=== PATIENT | male | born 1955 | race African-American/Black ===

== ENCOUNTER 2017-12-15 05:44 | Emergency (ER) | payer MEDICAID ==
[~2017-12-15] VITALS: Ht 188 cm; Wt 105.0 kg
[~2017-12-15 05:44] MED LIST: AMIT100T2 PO; ASPI-1159 PO; ATOR20TA65 PO; CYAN10009 PO; GABA-290 PO; INSULIN 70/30 SQ; LISI-604 PO; MAGN400C PO; TAMS0.4C31 PO
[2017-12-15 06:50] LABS: BASOPHILS % 0.8 % (0.0-2.0); EOSINOPHILS % 3.9 % (0.0-5.0); HEMATOCRIT. 37.4 % (42.0-52.0); HEMOGLOBIN. 12.7 g/dL (14.0-18.0); LYMPHOCYTES % 24.9 % (20.0-50.0); MEAN CORPUSCULAR HEMOGLOBIN 28.7 pg (28.0-32.0); MEAN CORPUSCULAR VOLUME 84.4 fL (80.0-94.0); MEAN PLATELET VOLUME 10.2 fl (7.4-10.4); MONOCYTES % 7.5 % (2.0-8.0); NEUTROPHILS % 62.9 % (40.0-76.0); PLATELET 206 x1000/uL (130-400); RED BLOOD CELL COUNT 4.44 mill/uL (4.7-6.1); RED CELL DISTRIBUTION WIDTH 15.7 % (11.6-14.6)
[2017-12-15 06:54] LABS: CHLORIDE 100 mEq/L (98-107)
[2017-12-15 06:58] LABS: ETHANOL BLOOD < 10 mg/dL
[2017-12-15 07:27] LABS: PROTHROMBIN TIME 10.3 sec (9.1-11.1)
[2017-12-15 07:46] VITALS: BP 127/72
== END 2017-12-15 08:05 | disposition left against medical advice (07) ==
LOC: ER 05:44
DX: R07.89 Other chest pain (principal); F41.9 Anxiety disorder, unspecified; E11.9 Type 2 diabetes mellitus without complications; E78.00 Pure hypercholesterolemia, unspecified; I11.9 Hypertensive heart disease without heart failure; D64.9 Anemia, unspecified; I48.91 Unspecified atrial fibrillation; Z79.01 Long term (current) use of anticoagulants; Z79.82 Long term (current) use of aspirin; Z79.4 Long term (current) use of insulin
CPT/HCPCS: 36415; 70450; 71045; 80053; 83880; 84484; 85025; 85610; 93005; 99285; G0482; Z7610

== ENCOUNTER 2018-03-19 04:05 | Emergency (ER) | payer MEDICAID ==
[~2018-03-19] VITALS: Ht 182.9 cm; Wt 106.8 kg
[2018-03-19] MEDS ORDERED: LEVETIRACETAM 500MG PREMIX 100 ML IV ONE (08:15)
[2018-03-19 09:08] LABS: BASOPHILS % 0.5 % (0.0-2.0); EOSINOPHILS % 0.8 % (0.0-5.0); HEMATOCRIT. 41.5 % (42.0-52.0); HEMOGLOBIN. 13.9 g/dL (14.0-18.0); LYMPHOCYTES % 14.2 % (20.0-50.0); MEAN CORPUSCULAR HEMOGLOBIN 28.9 pg (28.0-32.0); MEAN CORPUSCULAR VOLUME 86.1 fL (80.0-94.0); MEAN PLATELET VOLUME 10.5 fl (7.4-10.4); MONOCYTES % 4.7 % (2.0-8.0); NEUTROPHILS % 79.8 % (40.0-76.0); PLATELET 166 x1000/uL (130-400); RED BLOOD CELL COUNT 4.81 mill/uL (4.7-6.1)
[2018-03-19 09:15] LABS: CHLORIDE 105 mEq/L (98-107)
[2018-03-19 12:39] VITALS: BP 133/52
== END 2018-03-19 12:59 | disposition home or self-care (01) ==
LOC: ER 04:05
DX: G40.909 Epilepsy, unspecified, not intractable, without status epilepticus (principal); E11.9 Type 2 diabetes mellitus without complications; E78.00 Pure hypercholesterolemia, unspecified; I25.10 Atherosclerotic heart disease of native coronary artery without angina pectoris; J45.909 Unspecified asthma, uncomplicated; F17.200 Nicotine dependence, unspecified, uncomplicated; Z79.4 Long term (current) use of insulin; Z79.82 Long term (current) use of aspirin
CPT/HCPCS: 36415; 70450; 71045; 80053; 85025; 93005; 96365; 99284; J1953

== ENCOUNTER 2018-03-19 20:19 | Inpatient (IN) | payer MEDICAID ==
[~2018-03-19] VITALS: Ht 180.3 cm; Wt 95.1 kg
[2018-03-19] MEDS ORDERED: DEXTROSE 50% WATER 50ML SYRINGE IV ONE (21:30)
[2018-03-19 22:07] LABS: CHLORIDE 103 mEq/L (98-107)
[2018-03-19 22:09] LABS: BASOPHILS % 0.6 % (0.0-2.0); EOSINOPHILS % 1.1 % (0.0-5.0); HEMATOCRIT. 39.5 % (42.0-52.0); HEMOGLOBIN. 13.3 g/dL (14.0-18.0); LYMPHOCYTES % 10.5 % (20.0-50.0); MEAN CORPUSCULAR HEMOGLOBIN 29.1 pg (28.0-32.0); MEAN CORPUSCULAR VOLUME 86.5 fL (80.0-94.0); NEUTROPHILS % 82.8 % (40.0-76.0); PLATELET 164 x1000/uL (130-400); RED BLOOD CELL COUNT 4.57 mill/uL (4.7-6.1); RED CELL DISTRIBUTION WIDTH 15.2 % (11.6-14.6)
[2018-03-19 22:41] LABS: CLARITY URINE CLEAR (CLEAR); COLOR URINE YELLOW (YELLOW); KETONES URINE NEGATIVE (NEGATIVE); LEUKOCYTE ESTERASE URINE NEGATIVE (NEGATIVE); NITRITE URINE NEGATIVE (NEGATIVE); OCCULT BLOOD URINE NEGATIVE (NEGATIVE); PH URINE 5.5 (4.5-8.0); PROTEIN URINE NEGATIVE (NEGATIVE); SPECIFIC GRAVITY URINE 1.009 (1.005-1.030); UROBILINOGEN URINE 0.2 E.U./dL (0.2-1.0)
[2018-03-20] MEDS ORDERED: AZITHROMYCIN 500 MG in DEXT 5% WATER 250 ML IV SCH ×2
[2018-03-20] MEDS ORDERED: CEFTRIAXONE 1 G PREMIX 50 ML IV ONE
[2018-03-20 10:50] VITALS: BP 147/78
[2018-03-20 12:30] VITALS: BP 146/69
[2018-03-20] MEDS ORDERED: LEVETIRACETAM 500MG TABLET PO SCH (13:00)
[2018-03-20] MEDS ORDERED: DEXTROSE 50% WATER 50ML SYRINGE IV PRN (13:00)
[2018-03-20 15:41] VITALS: BP 145/79
[2018-03-20] MEDS ORDERED: BLOOD SUGAR DIAGNOSTIC STRIP TEST SCH (17:10)
[2018-03-20] MEDS ORDERED: INSULIN LISPRO 100 UNITS/ML SUBCUT SCH (17:40)
== END 2018-03-20 16:21 | disposition home or self-care (01) | DRG 469 ==
LOC: ER 20:19 → ENRESERV 03-20 09:35 → 8WST 03-20 10:11
PROVIDERS: ADMIT Internal Medicine; ATTEND Internal Medicine
DX: N17.9 Acute kidney failure, unspecified (principal); E11.649 Type 2 diabetes mellitus with hypoglycemia without coma; E44.1 Mild protein-calorie malnutrition; D64.9 Anemia, unspecified; E78.00 Pure hypercholesterolemia, unspecified; E78.5 Hyperlipidemia, unspecified; I10 Essential (primary) hypertension; G40.909 Epilepsy, unspecified, not intractable, without status epilepticus; J45.909 Unspecified asthma, uncomplicated; Z79.4 Long term (current) use of insulin; Z79.82 Long term (current) use of aspirin; Z79.899 Other long term (current) drug therapy; Z68.29 Body mass index [BMI] 29.0-29.9, adult
CPT/HCPCS: 36415; 71045; 82962; 83880; 84484; 93005; 96365; 99285; J0456; J0696; J7060

== ENCOUNTER 2018-03-21 11:08 | Emergency (ER) | payer MEDICAID ==
[~2018-03-21] VITALS: Ht 177.8 cm; Wt 90.0 kg
[2018-03-21 12:17] LABS: BASOPHILS % 0.8 % (0.0-2.0); EOSINOPHILS % 1.8 % (0.0-5.0); HEMATOCRIT. 39.9 % (42.0-52.0); HEMOGLOBIN. 13.3 g/dL (14.0-18.0); LYMPHOCYTES % 17.8 % (20.0-50.0); MEAN CORPUSCULAR HEMOGLOBIN 28.9 pg (28.0-32.0); MEAN CORPUSCULAR VOLUME 86.2 fL (80.0-94.0); MEAN PLATELET VOLUME 10.4 fl (7.4-10.4); MONOCYTES % 5.9 % (2.0-8.0); NEUTROPHILS % 73.7 % (40.0-76.0); PLATELET 148 x1000/uL (130-400); RED BLOOD CELL COUNT 4.62 mill/uL (4.7-6.1); RED CELL DISTRIBUTION WIDTH 15.2 % (11.6-14.6)
[2018-03-21 12:21] LABS: CHLORIDE 102 mEq/L (98-107)
[2018-03-21 13:19] VITALS: BP 168/83
== END 2018-03-21 13:20 | disposition home or self-care (01) ==
LOC: ER 11:08
DX: E11.649 Type 2 diabetes mellitus with hypoglycemia without coma (principal); E78.00 Pure hypercholesterolemia, unspecified; J45.909 Unspecified asthma, uncomplicated; I11.9 Hypertensive heart disease without heart failure; G40.909 Epilepsy, unspecified, not intractable, without status epilepticus; Z79.82 Long term (current) use of aspirin; Z79.4 Long term (current) use of insulin
CPT/HCPCS: 36415; 71045; 82962; 93005; 99284

== ENCOUNTER 2018-08-19 05:45 | Emergency (ER) | payer MEDICAID ==
[~2018-08-19] VITALS: Ht 188 cm; Wt 100.0 kg
[2018-08-19] MEDS ORDERED: SODIUM CHLORIDE 0.9% 1,000 ML IV ONE (06:57)
[2018-08-19] MEDS ORDERED: ONDANSETRON HCL 4MG/2ML INJ IV STA (06:57)
[2018-08-19] MEDS ORDERED: MORPHINE SULFATE 4 MG/ML CPJ (NOT FOR IM USE) IV STA (06:57)
[2018-08-19] MEDS ORDERED: LEVETIRACETAM 500MG PREMIX 100 ML IV ONE (07:00)
[2018-08-19 07:19] LABS: BASOPHILS % 0.7 % (0.0-2.0); EOSINOPHILS % 1.2 % (0.0-5.0); HEMOGLOBIN. 8.8 g/dL (14.0-18.0); LYMPHOCYTES % 8.1 % (20.0-50.0); MEAN CORPUSCULAR HEMOGLOBIN 29.4 pg (28.0-32.0); MEAN CORPUSCULAR VOLUME 87.1 fL (80.0-94.0); MEAN PLATELET VOLUME 9.9 fl (7.4-10.4); MONOCYTES % 10.5 % (2.0-8.0); NEUTROPHILS % 79.5 % (40.0-76.0); PLATELET 215 x1000/uL (130-400); RED BLOOD CELL COUNT 2.98 mill/uL (4.7-6.1)
[2018-08-19 07:25] LABS: CHLORIDE 101 mEq/L (98-107)
[2018-08-19 07:28] LABS: PROTHROMBIN TIME 10.4 sec (9.6-11.0)
[2018-08-19 07:42] LABS: CARBAMAZEPINE < 0.5 ug/mL (4-12); PHENOBARBITAL < 2.1 ug/mL (15.0-40.0)
[2018-08-19] MEDS ORDERED: VANCOMYCIN 1 G PREMIX 200 ML IV ONE (09:30)
[2018-08-19] MEDS ORDERED: SODIUM CHLORIDE 0.9% 1000ML BAG (SEPSIS BOLUS) IV ONE (09:30)
[2018-08-19] MEDS ORDERED: CEFTRIAXONE 1 G PREMIX 50 ML IV ONE (09:30)
[2018-08-19 11:01] LABS: CLARITY URINE CLEAR (CLEAR); COLOR URINE YELLOW (YELLOW); KETONES URINE NEGATIVE (NEGATIVE); LEUKOCYTE ESTERASE URINE NEGATIVE (NEGATIVE); NITRITE URINE NEGATIVE (NEGATIVE); OCCULT BLOOD URINE NEGATIVE (NEGATIVE); PH URINE 6.5 (4.5-8.0); PROTEIN URINE 1+ (NEGATIVE); SPECIFIC GRAVITY URINE 1.012 (1.005-1.030)
[2018-08-19 18:27] VITALS: BP 144/68
== END 2018-08-19 19:27 | disposition short-term general hospital (02) ==
LOC: ER 05:45 → CANBEDREQ 10:50 → ER 19:27
DX: R55 Syncope and collapse (principal); E11.9 Type 2 diabetes mellitus without complications; I10 Essential (primary) hypertension; T81.40XA Infection following a procedure, unspecified, initial encounter; X58.XXXA Exposure to other specified factors, initial encounter; Z98.890 Other specified postprocedural states
CPT/HCPCS: 29505; 36415; 70450; 70486; 71045; 73502; 73560; 73590; 73600; 80053; 80156; 80165; 80184; 80185; 81003; 83605; 83880; 84484; 85025; 85610; 85730; 86850; 86900; 86901; 87040; 87086; 93005; 96365; 96367; 96375; 99285; J0696; J1953; J2270; J2405; J3370; J7030; Z7610

== ENCOUNTER 2018-08-24 01:30 | Inpatient (IN) | payer MEDICAID ==
[~2018-08-24] VITALS: Ht 180.3 cm; Wt 91.6 kg
[2018-08-24 03:38] LABS: BASOPHILS % 0.9 % (0.0-2.0); EOSINOPHILS % 2.2 % (0.0-5.0); HEMATOCRIT. 28.6 % (42.0-52.0); HEMOGLOBIN. 9.4 g/dL (14.0-18.0); LYMPHOCYTES % 11.6 % (20.0-50.0); MEAN CORPUSCULAR HEMOGLOBIN 28.9 pg (28.0-32.0); MEAN CORPUSCULAR VOLUME 87.7 fL (80.0-94.0); MEAN PLATELET VOLUME 10.2 fl (7.4-10.4); MONOCYTES % 6.7 % (2.0-8.0); NEUTROPHILS % 78.6 % (40.0-76.0); PLATELET 410 x1000/uL (130-400); RED BLOOD CELL COUNT 3.26 mill/uL (4.7-6.1); RED CELL DISTRIBUTION WIDTH 15.7 % (11.6-14.6)
[2018-08-24 03:44] LABS: CHLORIDE 110 mEq/L (98-107)
[2018-08-24] MEDS ORDERED: DEXTROSE 50% WATER 50ML SYRINGE IV ONE (04:15)
[2018-08-24] MEDS ORDERED: DEXTROSE 50% WATER 50ML SYRINGE IV PRN ×2 (04:15→12:00)
[2018-08-24] MEDS ORDERED: ASPIRIN 325MG EC TABLET PO SCH (04:15)
[2018-08-24 05:26] LABS: CLARITY URINE CLEAR (CLEAR); COLOR URINE YELLOW (YELLOW); KETONES URINE NEGATIVE (NEGATIVE); LEUKOCYTE ESTERASE URINE NEGATIVE (NEGATIVE); NITRITE URINE NEGATIVE (NEGATIVE); OCCULT BLOOD URINE NEGATIVE (NEGATIVE); PH URINE 5.5 (4.5-8.0); PROTEIN URINE TRACE (NEGATIVE); SPECIFIC GRAVITY URINE 1.018 (1.005-1.030)
[2018-08-24 09:30] VITALS: BP 130/63
[2018-08-24 10:00] VITALS: BP 130/63
[2018-08-24] MEDS ORDERED: ACETAMINOPHEN 325MG TABLET PO PRN (10:15)
[2018-08-24] MEDS ORDERED: ONDANSETRON HCL 4MG/2ML INJ IV PRN (10:15)
[2018-08-24] MEDS ORDERED: AMLO10TA80 PO (11:06)
[2018-08-24] MEDS ORDERED: CARV12.545 PO (11:09)
[2018-08-24] MEDS ORDERED: LOSA100T14 PO (11:09)
[2018-08-24] MEDS ORDERED: NIFE60TA94 PO (11:09)
[2018-08-24] MEDS ORDERED: HYDR-4134 MT (11:09)
[2018-08-24] MEDS ORDERED: SEVE800T8 PO (11:09)
[2018-08-24 12:00] VITALS: BP 134/61
[2018-08-24] MEDS ORDERED: LACTULOSE 20G/30ML UDC PO PRN (12:00)
[2018-08-24] MEDS: INSULIN LISPRO 100 UNITS/ML SUBCUT SCH ×3 (12:24→20:34)
[2018-08-24] MEDS: BLOOD SUGAR DIAGNOSTIC STRIP TEST SCH ×3 (12:24→20:34)
[2018-08-24] MEDS ORDERED: ACETAMINOPHEN WITH CODEINE 300/30MG TABLET PO PRN (16:15)
[2018-08-24] MEDS: DOCUSATE SODIUM 100MG CAPSULE PO SCH (17:39)
[2018-08-24 20:00] VITALS: BP 138/68
[2018-08-24] MEDS: HYDROCODONE/ACETAMINOPHEN 5/325MG TABLET PO PRN (20:32)
[2018-08-25] VITALS: BP 143/71
[2018-08-25] MEDS: HYDROCODONE/ACETAMINOPHEN 5/325MG TABLET PO PRN ×2 (01:58→08:38)
[2018-08-25 03:41] VITALS: BP 149/66
[2018-08-25 06:16] LABS: BASOPHILS % 0.9 % (0.0-2.0); EOSINOPHILS % 2.4 % (0.0-5.0); HEMATOCRIT. 27.4 % (42.0-52.0); HEMOGLOBIN. 9.1 g/dL (14.0-18.0); LYMPHOCYTES % 18.8 % (20.0-50.0); MEAN CORPUSCULAR HEMOGLOBIN 28.9 pg (28.0-32.0); MONOCYTES % 8.4 % (2.0-8.0); NEUTROPHILS % 69.5 % (40.0-76.0); PLATELET 372 x1000/uL (130-400); RED BLOOD CELL COUNT 3.15 mill/uL (4.7-6.1); RED CELL DISTRIBUTION WIDTH 16.1 % (11.6-14.6)
[2018-08-25 06:19] LABS: CHLORIDE 109 mEq/L (98-107)
[2018-08-25] MEDS: BLOOD SUGAR DIAGNOSTIC STRIP TEST SCH ×3 (07:20→17:14)
[2018-08-25] MEDS: INSULIN LISPRO 100 UNITS/ML SUBCUT SCH ×3 (07:50→17:16)
[2018-08-25 08:00] VITALS: BP 148/73
[2018-08-25] MEDS: DOCUSATE SODIUM 100MG CAPSULE PO SCH ×2 (08:33→17:00)
[2018-08-25] MEDS ORDERED: FERROUS SULFATE 325MG TABLET PO SCH (09:00)
[2018-08-25 12:00] VITALS: BP 155/68
[2018-08-25] MEDS ORDERED: MORPHINE SULFATE 10MG/5ML ORAL SOLN UDC PO PRN (12:00)
[2018-08-25] MEDS ORDERED: MORPHINE SULFATE 4 MG/ML CPJ (NOT FOR IM USE) IV NR (12:15)
[2018-08-25 12:39] VITALS: BP_SYST 140; BP_SYST 155; BP_DIAS 64; BP_DIAS 68
[2018-08-25 16:00] VITALS: BP 143/67
== END 2018-08-25 18:27 | disposition home health service (06) | DRG 48 ==
LOC: ER 01:30 → 6WST 04:22 → ENRESERV 07:58
PROVIDERS: ADMIT Internal Medicine; ATTEND Internal Medicine
DX: G90.8 Other disorders of autonomic nervous system (principal); E43 Unspecified severe protein-calorie malnutrition; E11.649 Type 2 diabetes mellitus with hypoglycemia without coma; I95.9 Hypotension, unspecified; E87.8 Other disorders of electrolyte and fluid balance, not elsewhere classified; E11.36 Type 2 diabetes mellitus with diabetic cataract; D64.9 Anemia, unspecified; E78.5 Hyperlipidemia, unspecified; G40.909 Epilepsy, unspecified, not intractable, without status epilepticus; H91.90 Unspecified hearing loss, unspecified ear; I10 Essential (primary) hypertension; I25.10 Atherosclerotic heart disease of native coronary artery without angina pectoris; K27.9 Peptic ulcer, site unspecified, unspecified as acute or chronic, without hemorrhage or perforation; R26.2 Difficulty in walking, not elsewhere classified; F17.210 Nicotine dependence, cigarettes, uncomplicated; N26.1 Atrophy of kidney (terminal); Z79.899 Other long term (current) drug therapy; Z82.49 Family history of ischemic heart disease and other diseases of the circulatory system; Z82.3 Family history of stroke; Z68.28 Body mass index [BMI] 28.0-28.9, adult
CPT/HCPCS: 36415; 71045; 80048; 82962; 83036; 83880; 84145; 84484; 93005; 93306; 93970; 97162; 97166; 99285; J1815; J2270

== ENCOUNTER 2018-11-08 01:12 | Emergency (ER) | payer MEDICAID ==
[~2018-11-08] VITALS: Ht 182.9 cm; Wt 84.0 kg
[~2018-11-08 01:12] MED LIST changes: -AMIT100T2 PO; +AMLO10TA80 PO; -ASPI-1159 PO; -ATOR20TA65 PO; -CYAN10009 PO; -GABA-290 PO; -INSULIN 70/30 SQ; -LISI-604 PO; -MAGN400C PO; -TAMS0.4C31 PO
[2018-11-08] MEDS ORDERED: SODIUM CHLORIDE 0.9% 1,000 ML IV ONE (02:01)
[2018-11-08 02:25] LABS: BASOPHILS % 0.8 % (0.0-2.0); EOSINOPHILS % 4.1 % (0.0-5.0); LYMPHOCYTES % 24.4 % (20.0-50.0); MEAN CORPUSCULAR HEMOGLOBIN 29.4 pg (28.0-32.0); MEAN CORPUSCULAR VOLUME 85.7 fL (80.0-94.0); MEAN PLATELET VOLUME 11.5 fl (7.4-10.4); MONOCYTES % 5.3 % (2.0-8.0); NEUTROPHILS % 65.4 % (40.0-76.0); PLATELET 129 x1000/uL (130-400); RED BLOOD CELL COUNT 4.43 mill/uL (4.7-6.1); RED CELL DISTRIBUTION WIDTH 14.3 % (11.6-14.6)
[2018-11-08 02:29] LABS: CHLORIDE 104 mEq/L (98-107)
[2018-11-08 02:36] LABS: BETA HYDROXYBUTYRATE 0.1 mMol/L (0.0-0.3)
[2018-11-08 04:21] VITALS: BP 122/68
== END 2018-11-08 04:30 | disposition home or self-care (01) ==
LOC: ER 01:12
DX: E11.65 Type 2 diabetes mellitus with hyperglycemia (principal); J45.909 Unspecified asthma, uncomplicated; E78.00 Pure hypercholesterolemia, unspecified; R56.9 Unspecified convulsions; I10 Essential (primary) hypertension; I25.10 Atherosclerotic heart disease of native coronary artery without angina pectoris
CPT/HCPCS: 36415; 80053; 82010; 82962; 85025; 96360; 99283; J7030; Z7610

== ENCOUNTER 2018-11-17 05:01 | Emergency (ER) | payer MEDICAID ==
[~2018-11-17] VITALS: Ht 180.3 cm; Wt 90.0 kg
[2018-11-17] MEDS ORDERED: GLUCAGON,HUMAN RECOMBINANT 1MG/VIAL IV ONE (05:30)
[2018-11-17] MEDS ORDERED: DEXT 10% WATER 1,000 ML IV ONE (05:45)
[2018-11-17] MEDS ORDERED: DEXTROSE 50% WATER 50ML SYRINGE IV ONE (05:45)
[2018-11-17 06:42] LABS: BASOPHILS % 0.6 % (0.0-2.0); EOSINOPHILS % 3.4 % (0.0-5.0); HEMOGLOBIN. 12.9 g/dL (14.0-18.0); LYMPHOCYTES % 15.3 % (20.0-50.0); MEAN CORPUSCULAR HEMOGLOBIN 29.4 pg (28.0-32.0); MEAN CORPUSCULAR VOLUME 86.7 fL (80.0-94.0); MEAN PLATELET VOLUME 9.9 fl (7.4-10.4); MONOCYTES % 7.1 % (2.0-8.0); NEUTROPHILS % 73.6 % (40.0-76.0); PLATELET 129 x1000/uL (130-400); RED BLOOD CELL COUNT 4.39 mill/uL (4.7-6.1); RED CELL DISTRIBUTION WIDTH 14.6 % (11.6-14.6)
[2018-11-17 06:47] LABS: CHLORIDE 104 mEq/L (98-107)
[2018-11-17 09:59] VITALS: BP 176/73
== END 2018-11-17 10:04 | disposition home or self-care (01) ==
LOC: ER 05:17
DX: E11.649 Type 2 diabetes mellitus with hypoglycemia without coma (principal); E78.00 Pure hypercholesterolemia, unspecified; I10 Essential (primary) hypertension; G40.909 Epilepsy, unspecified, not intractable, without status epilepticus; J45.909 Unspecified asthma, uncomplicated; I25.10 Atherosclerotic heart disease of native coronary artery without angina pectoris; F17.210 Nicotine dependence, cigarettes, uncomplicated; Z79.4 Long term (current) use of insulin; Z98.890 Other specified postprocedural states
CPT/HCPCS: 36415; 80053; 82962; 85025; 93005; 96361; 96374; 96375; 99284; J1610

== ENCOUNTER 2019-02-16 02:22 | Inpatient (IN) | payer MEDICAID ==
[~2019-02-16] VITALS: Ht 172.7 cm; Wt 112.5 kg
[2019-02-16] MEDS ORDERED: SODIUM CHLORIDE 0.9% 1,000 ML IV ONE (03:41)
[2019-02-16] MEDS ORDERED: ONDANSETRON 4MG ODT PO STA (03:41)
[2019-02-16] MEDS ORDERED: KETOROLAC 30MG/ML VIAL IV STA (03:41)
[2019-02-16 04:33] LABS: PROTHROMBIN TIME 10.5 sec (9.6-11.0)
[2019-02-16 04:37] LABS: EOSINOPHILS % 5.6 % (0.0-5.0); HEMATOCRIT. 37.9 % (42.0-52.0); HEMOGLOBIN. 13.2 g/dL (14.0-18.0); LYMPHOCYTES % 23.5 % (20.0-50.0); MEAN CORPUSCULAR HEMOGLOBIN 30.7 pg (28.0-32.0); MEAN CORPUSCULAR VOLUME 88.3 fL (80.0-94.0); MONOCYTES % 8.9 % (2.0-8.0); PLATELET 125 x1000/uL (130-400); RED CELL DISTRIBUTION WIDTH 14.5 % (11.6-14.6)
[2019-02-16 04:38] LABS: CHLORIDE 104 mEq/L (98-107)
[2019-02-16 05:10] LABS: CLARITY URINE CLEAR (CLEAR); COLOR URINE YELLOW (YELLOW); KETONES URINE NEGATIVE (NEGATIVE); LEUKOCYTE ESTERASE URINE NEGATIVE (NEGATIVE); NITRITE URINE NEGATIVE (NEGATIVE); OCCULT BLOOD URINE NEGATIVE (NEGATIVE); PROTEIN URINE 1+ (NEGATIVE); SPECIFIC GRAVITY URINE 1.038 (1.005-1.030); UROBILINOGEN URINE 0.2 E.U./dL (0.2-1.0)
[2019-02-16] MEDS ORDERED: IOHEXOL-300 100 ML BOTTLE ONE (05:57)
[2019-02-16] MEDS ORDERED: FAMOTIDINE 20MG/2ML VIAL IV ONE (07:45)
[2019-02-16] MEDS ORDERED: ONDANSETRON HCL 4MG/2ML INJ IV PRN (09:45)
[2019-02-16] MEDS ORDERED: DEXTROSE 50% WATER 50ML SYRINGE IV PRN (09:45)
[2019-02-16] MEDS ORDERED: NA PHOS,M-B/NA PHOS,DI-BA ENEMA 118ML PR SCH (09:45)
[2019-02-16] MEDS ORDERED: MORPHINE SULFATE 2 MG/ML CPJ (NOT FOR IM USE) IV PRN (09:45)
[2019-02-16] MEDS ORDERED: BISACODYL 10MG SUPP PR SCH (10:34)
[2019-02-16] MEDS: SODIUM CHLORIDE 0.9% 1,000 ML IV SCH (10:41)
[2019-02-16] MEDS: PANTOPRAZOLE SODIUM 40 MG/VIAL IV SCH (10:58)
[2019-02-16 12:00] VITALS: BP 161/90
[2019-02-16] MEDS ORDERED: ENALAPRIL 2.5MG/2ML VIAL 2ML IV SCH (12:00)
[2019-02-16 16:00] VITALS: BP 153/82
[2019-02-16 17:00] VITALS: BP 161/90
[2019-02-16] MEDS: ENALAPRIL 1.25 MG in DEXTROSE 5% WATER 50 ML IV SCH (18:40)
[2019-02-16 20:00] VITALS: BP 153/74
[2019-02-16] MEDS ORDERED: HYDROCODONE/APAP 7.5/325MG 1 TAB TABLET PO PRN (20:00)
[2019-02-16] MEDS: INSULIN LISPRO 100 UNITS/ML SUBCUT SCH (21:00)
[2019-02-16] MEDS: BLOOD SUGAR DIAGNOSTIC STRIP TEST SCH (21:00)
[2019-02-16] MEDS: CARVEDILOL 3.125 MG TABLET PO SCH ×2 (21:08→21:28)
[2019-02-17] VITALS: BP 155/78
[2019-02-17] MEDS: ENALAPRIL 1.25 MG in DEXTROSE 5% WATER 50 ML IV SCH ×4 (00:29→18:00)
[2019-02-17 04:00] VITALS: BP 163/73
[2019-02-17] MEDS: SODIUM CHLORIDE 0.9% 1,000 ML IV SCH (05:58)
[2019-02-17] MEDS: INSULIN LISPRO 100 UNITS/ML SUBCUT SCH ×3 (07:00→17:34)
[2019-02-17] MEDS: BLOOD SUGAR DIAGNOSTIC STRIP TEST SCH ×3 (07:00→17:26)
[2019-02-17 07:54] LABS: BASOPHILS % 0.9 % (0.0-2.0); EOSINOPHILS % 4.6 % (0.0-5.0); HEMATOCRIT. 36.7 % (42.0-52.0); HEMOGLOBIN. 12.4 g/dL (14.0-18.0); LYMPHOCYTES % 25.1 % (20.0-50.0); MEAN CORPUSCULAR HEMOGLOBIN 30.4 pg (28.0-32.0); MEAN CORPUSCULAR VOLUME 89.4 fL (80.0-94.0); MEAN PLATELET VOLUME 10.6 fl (7.4-10.4); MONOCYTES % 6.5 % (2.0-8.0); NEUTROPHILS % 62.9 % (40.0-76.0); PLATELET 119 x1000/uL (130-400); RED CELL DISTRIBUTION WIDTH 14.4 % (11.6-14.6)
[2019-02-17 08:00] VITALS: BP 155/78
[2019-02-17 08:36] LABS: CHLORIDE 108 mEq/L (98-107)
[2019-02-17] MEDS ORDERED: ATORVASTATIN CALCIUM 40MG TABLET PO SCH (09:00)
[2019-02-17] MEDS ORDERED: FAMOTIDINE 20MG TABLET PO SCH (09:00)
[2019-02-17] MEDS ORDERED: LISINOPRIL 10MG TABLET PO SCH (09:00)
[2019-02-17] MEDS ORDERED: ASPIRIN 81MG TABLET PO SCH (09:00)
[2019-02-17] MEDS ORDERED: TAMSULOSIN HCL 0.4MG SR CAPSULE PO SCH (09:00)
[2019-02-17] MEDS ORDERED: PANTOPRAZOLE SODIUM 40 MG/VIAL IV SCH (09:00)
[2019-02-17] MEDS: PANTOPRAZOLE SODIUM 40 MG/VIAL IV SCH (09:49)
[2019-02-17] MEDS: CARVEDILOL 3.125 MG TABLET PO SCH (09:53)
[2019-02-17] MEDS: LEVETIRACETAM 500MG TABLET PO SCH ×2 (09:54→17:33)
[2019-02-17 10:06] LABS: *AMPHETAMINES SCREEN URINE NEGATIVE (NEGATIVE); *BARBITURATES SCREEN URINE NEGATIVE (NEGATIVE); *BENZODIAZEPINES SCREEN URINE NEGATIVE (NEGATIVE); *COCAINE SCREEN URINE NEGATIVE (NEGATIVE)
[2019-02-17 10:07] LABS: CANNABINOID URINE SCREEN NEGATIVE (NEGATIVE); METHADONE URINE SCREEN NEGATIVE (NEGATIVE); OPIATES URINE SCREEN PRESUMTIVE POSITIVE (NEGATIVE); PHENCYCLIDINE URINE SCREEN NEGATIVE (NEGATIVE)
[2019-02-17 12:00] VITALS: BP 140/60
[2019-02-17] MEDS ORDERED: PROPOFOL 200MG/20ML VIAL IV ONE (12:22)
[2019-02-17] MEDS ORDERED: HYDROMORPHONE HCL/PF 2MG/ML CPJ IV PRN (12:45)
[2019-02-17] MEDS ORDERED: ONDANSETRON HCL 4MG/2ML INJ IV PRN (12:45)
[2019-02-17] MEDS ORDERED: LABETALOL 5MG/ML SYR 20 MG/4 ML SYRINGE IV PRN (12:45)
[2019-02-17] MEDS ORDERED: MEPERIDINE HCL/PF 25MG/ML CPJ IV PRN (12:45)
[2019-02-17] MEDS ORDERED: OMEP40CA34 MT (15:00)
[2019-02-17 16:00] VITALS: BP 139/78
[2019-02-17 16:32] VITALS: BP 155/78
== END 2019-02-17 18:27 | disposition home or self-care (01) | DRG 241 ==
LOC: ER 03:43 → 6EST 09:04 → ENRESERV 11:21
PROVIDERS: ADMIT Internal Medicine; ATTEND Internal Medicine
PROC: 0DB78ZX Excision of Stomach, Pylorus, Via Natural or Artificial Opening Endoscopic, Diagnostic (ICD-10-PCS; principal; 2019-02-17)
PROC: 0D758ZZ Dilation of Esophagus, Via Natural or Artificial Opening Endoscopic (ICD-10-PCS; 2019-02-17)
DX: K25.9 Gastric ulcer, unspecified as acute or chronic, without hemorrhage or perforation (principal); D69.6 Thrombocytopenia, unspecified; K22.0 Achalasia of cardia; E66.01 Morbid (severe) obesity due to excess calories; N28.1 Cyst of kidney, acquired; D64.9 Anemia, unspecified; E11.9 Type 2 diabetes mellitus without complications; K20.9 Esophagitis, unspecified; K29.70 Gastritis, unspecified, without bleeding; E78.5 Hyperlipidemia, unspecified; F17.210 Nicotine dependence, cigarettes, uncomplicated; G40.909 Epilepsy, unspecified, not intractable, without status epilepticus; I10 Essential (primary) hypertension; I25.10 Atherosclerotic heart disease of native coronary artery without angina pectoris; K22.8 Other specified diseases of esophagus; K56.41 Fecal impaction; N26.1 Atrophy of kidney (terminal); Z87.11 Personal history of peptic ulcer disease; Z71.6 Tobacco abuse counseling; Z68.37 Body mass index [BMI] 37.0-37.9, adult; Z71.3 Dietary counseling and surveillance; Z79.899 Other long term (current) drug therapy
CPT/HCPCS: 36415; 71045; 74177; 80048; 80305; 81003; 82962; 83880; 84484; 88305; 88313; 93970; 96374; 99285; C9113; J1815; J1885; J2270; J2704; J3490; J7030; J7060; Q0162; Q9967

== ENCOUNTER 2022-08-12 19:33 | Inpatient (IN) | payer MEDICARE, MEDICAID ==
[~2022-08-12] VITALS: Ht 180.3 cm; Wt 98.0 kg
[~2022-08-12 19:33] MED LIST changes: +AMLO5TAB88 PO; +ASPI-1406 PO; +ATOR-2 PO; +BLOO-1657 XX; +CARV3.1242 PO; +INSU100I24 SUBCUT; +LEVE500T19 PO; +LISI20TA31 PO; +METF-416 PO; +OMEP40CA20 MT; +PRIL20 PO; +[UNRECOGNIZED DRUG - CODE]; +[UNRECOGNIZED DRUG - CODE]; +[UNRECOGNIZED DRUG - CODE] TP
[2022-08-12 21:23] LABS: HEMATOCRIT. 38.4 % (42.0-52.0); MEAN CORPUSCULAR HEMOGLOBIN 29.1 pg (28.0-32.0); MEAN CORPUSCULAR VOLUME 86.1 fL (80.0-94.0); MEAN PLATELET VOLUME 10.5 fl (7.4-10.4); PLATELET 123 x1000/uL (130-400); RED BLOOD CELL COUNT 4.46 mill/uL (4.7-6.1); RED CELL DISTRIBUTION WIDTH 14.5 % (11.6-14.6)
[2022-08-12 21:32] LABS: CHLORIDE 106 mEq/L (98-107)
[2022-08-13 00:19] LABS: PLATELET ESTIMATE NORMAL
[2022-08-13 01:39] VITALS: BP 145/70
[2022-08-13 01:44] LABS: CLARITY URINE CLEAR (CLEAR); COLOR URINE YELLOW (YELLOW); KETONES URINE TRACE (NEGATIVE); LEUKOCYTE ESTERASE URINE NEGATIVE (NEGATIVE); NITRITE URINE NEGATIVE (NEGATIVE); OCCULT BLOOD URINE NEGATIVE (NEGATIVE); PROTEIN URINE 1+ (NEGATIVE); SPECIFIC GRAVITY URINE 1.024 (1.005-1.030)
[2022-08-13] MEDS ORDERED: DEXTROSE 50% WATER 50ML SYRINGE IV PRN (02:30)
[2022-08-13 04:00] VITALS: BP 138/68
[2022-08-13 06:45] LABS: HEMATOCRIT. 37.6 % (42.0-52.0); HEMOGLOBIN. 12.8 g/dL (14.0-18.0); MEAN CORPUSCULAR HEMOGLOBIN 29.2 pg (28.0-32.0); MEAN PLATELET VOLUME 11.2 fl (7.4-10.4); PLATELET 121 x1000/uL (130-400); RED BLOOD CELL COUNT 4.37 mill/uL (4.7-6.1); RED CELL DISTRIBUTION WIDTH 14.5 % (11.6-14.6)
[2022-08-13 06:57] LABS: CHLORIDE 106 mEq/L (98-107)
[2022-08-13] MEDS: BLOOD SUGAR DIAGNOSTIC STRIP TEST SCH ×2 (07:40→12:56)
[2022-08-13] MEDS ORDERED: OMEPRAZOLE 20MG CAPSULE EXTENDED RELEASE PO SCH (07:40)
[2022-08-13 08:00] VITALS: BP 121/62
[2022-08-13] MEDS: INSULIN LISPRO 100 UNITS/ML SUBCUT SCH ×2 (08:52→13:09)
[2022-08-13] MEDS ORDERED: TAMSULOSIN HCL 0.4MG SR CAPSULE PO SCH (09:00)
[2022-08-13] MEDS ORDERED: CARVEDILOL 3.125 MG TABLET PO SCH (09:00)
[2022-08-13] MEDS ORDERED: ASPIRIN 81MG EC TABLET PO SCH (09:00)
[2022-08-13] MEDS ORDERED: LEVETIRACETAM 500MG TABLET PO SCH (09:00)
[2022-08-13] MEDS ORDERED: AMLODIPINE 10MG TABLET PO SCH (09:00)
[2022-08-13] MEDS ORDERED: LISINOPRIL 20MG TABLET PO SCH (09:00)
[2022-08-13 12:00] VITALS: BP 120/60
[2022-08-13] MEDS ORDERED: GUAIFENESIN-DM 200MG-20MG/10ML UDC PO PRN (16:00)
[2022-08-13 17:03] VITALS: BP 120/66
[2022-08-13] MEDS ORDERED: ATORVASTATIN CALCIUM 40MG TABLET PO SCH (21:00)
[2022-08-13 21:01] LABS: PLATELET ESTIMATE NORMAL
[2022-08-14 13:08] LABS: *AMPHETAMINES SCREEN URINE NEGATIVE (NEGATIVE); *BARBITURATES SCREEN URINE NEGATIVE (NEGATIVE); *BENZODIAZEPINES SCREEN URINE NEGATIVE (NEGATIVE); *COCAINE SCREEN URINE NEGATIVE (NEGATIVE); CANNABINOID URINE SCREEN NEGATIVE (NEGATIVE); METHADONE URINE SCREEN NEGATIVE (NEGATIVE); OPIATES URINE SCREEN NEGATIVE (NEGATIVE); PHENCYCLIDINE URINE SCREEN NEGATIVE (NEGATIVE)
== END 2022-08-13 18:18 | disposition home or self-care (01) | DRG 420 ==
LOC: ER 19:33 → MICUSO 22:27 → EDBEDREQ 23:05 → 7WST 08-13 01:35
PROVIDERS: ADMIT Internal Medicine; ATTEND Internal Medicine
DX: E11.65 Type 2 diabetes mellitus with hyperglycemia (principal); E78.00 Pure hypercholesterolemia, unspecified; G40.909 Epilepsy, unspecified, not intractable, without status epilepticus; I10 Essential (primary) hypertension; Z79.899 Other long term (current) drug therapy
CPT/HCPCS: 36415; 71045; 80048; 80053; 80305; 81003; 82962; 83036; 83880; 84484; 85025; 99285; J1815

== ENCOUNTER 2023-10-30 12:02 | Emergency (ER) | payer MEDICARE, MEDICAID ==
[~2023-10-30] VITALS: Ht 180.3 cm; Wt 85.0 kg
[2023-10-30 12:05] VITALS: O2SAT 99
[2023-10-30 12:29] LABS: EOSINOPHILS % 6.2 % (0.0-5.0); HEMATOCRIT. 36.6 % (42.0-52.0); HEMOGLOBIN. 12.2 g/dL (14.0-18.0); LYMPHOCYTES % 28.7 % (20.0-50.0); MEAN CORPUSCULAR HGB CONC 33.3 g/dL (31.0-37.0); MONOCYTES % 7.4 % (2.0-8.0); NEUTROPHILS % 56.7 % (40.0-76.0); PLATELET 117 x1000/uL (130-400); RED BLOOD CELL COUNT 4.21 mill/uL (4.7-6.1); RED CELL DISTRIBUTION WIDTH 14.5 % (11.6-14.6); WHITE BLOOD COUNT 5.6 x1000/uL (4.5-11.0)
[2023-10-30 12:33] LABS: CHLORIDE 108 mEq/L (98-107); POTASSIUM 4.5 mEq/L (3.5-5.1); SODIUM 142 mEq/L (136-145)
[2023-10-30 12:34] LABS: CARBON DIOXIDE 31 mEq/L (21-32)
[2023-10-30 12:35] LABS: CALCIUM 8.8 mg/dL (8.7-10.4)
[2023-10-30 12:39] LABS: CREATININE 1.4 mg/dL (0.6-1.3)
[2023-10-30 12:40] LABS: TROPONIN I HIGH SENSITIVITY 12 ng/L (3.0-53); UREA NITROGEN BLOOD 22 mg/dL (9-23)
[2023-10-30 12:41] LABS: ALANINE AMINOTRANSFERASE 26 IU/L (10-49); ASPARTATE AMINOTRANSFERASE 18 IU/L (<34)
[2023-10-30 12:42] LABS: ALBUMIN 3.5 g/dL (3.2-4.8); BILIRUBIN TOTAL 0.4 mg/dL (0.1-1.0); PROTEIN TOTAL 5.6 g/dL (6.0-8.3)
[2023-10-30 12:49] LABS: GLUCOSE 109 mg/dL (70-105)
[2023-10-30] MEDS: ACETAMINOPHEN 325MG TABLET PO ONE (13:24)
[2023-10-30 14:13] VITALS: BP 125/61; PULSE 60; RESP 12; TEMP 98.1
[2023-10-30] MEDS ORDERED: DEXTROSE 50% WATER 50ML SYRINGE IV PRN (14:15)
[2023-10-30] MEDS ORDERED: ONDANSETRON HCL 4MG/2ML INJ IV PRN (14:15)
[2023-10-30] MEDS ORDERED: ACETAMINOPHEN 325MG TABLET PO PRN (14:15)
[2023-10-30] MEDS: SODIUM CHLORIDE 0.9% 1,000 ML IV SCH (14:20)
[2023-10-30 14:32] LABS: TROPONIN I HIGH SENSITIVITY 12 ng/L (3.0-53)
[2023-10-30] MEDS ORDERED: BLOOD SUGAR DIAGNOSTIC STRIP TEST SCH (17:00)
[2023-10-30] MEDS ORDERED: INSULIN LISPRO 100 UNITS/ML SUBCUT SCH (18:20)
== END 2023-10-30 15:26 | disposition left against medical advice (07) ==
LOC: ER 12:02 → CANBEDREQ 14:44 → ER 15:26
DX: R55 Syncope and collapse (principal); G40.909 Epilepsy, unspecified, not intractable, without status epilepticus; E11.9 Type 2 diabetes mellitus without complications; E78.00 Pure hypercholesterolemia, unspecified; I10 Essential (primary) hypertension
CPT/HCPCS: 36415; 71045; 80053; 82962; 84484; 85025; 93005; 96360; 99285

== ENCOUNTER 2024-03-12 10:30 | Emergency (ER) | payer MEDICARE, MEDICAID ==
[~2024-03-12] VITALS: Ht 172.7 cm; Wt 80.0 kg
[2024-03-12 10:32] VITALS: O2SAT 100
[2024-03-12 10:50] VITALS: TEMP 36.72516
[2024-03-12 11:07] LABS: BASOPHILS % 0.8 % (0.0-2.0); EOSINOPHILS % 3.5 % (0.0-5.0); HEMATOCRIT. 37.6 % (42.0-52.0); HEMOGLOBIN. 12.4 g/dL (14.0-18.0); MEAN CORPUSCULAR HEMOGLOBIN 28.6 pg (28.0-32.0); MEAN CORPUSCULAR HGB CONC 33.1 g/dL (31.0-37.0); MEAN CORPUSCULAR VOLUME 86.4 fL (80.0-94.0); MEAN PLATELET VOLUME 10.4 fl (7.4-10.4); MONOCYTES % 6.3 % (2.0-8.0); NEUTROPHILS % 72.4 % (40.0-76.0); PLATELET 126 x1000/uL (130-400); RED BLOOD CELL COUNT 4.35 mill/uL (4.7-6.1); RED CELL DISTRIBUTION WIDTH 13.6 % (11.6-14.6); WHITE BLOOD COUNT 6.8 x1000/uL (4.5-11.0)
[2024-03-12] MEDS: SODIUM CHLORIDE 0.9% 1,000 ML IV ONE (11:13)
[2024-03-12 11:18] LABS: CALCIUM 8.8 mg/dL (8.7-10.4); CHLORIDE 103 mEq/L (98-107); POTASSIUM 4.7 mEq/L (3.5-5.1); SODIUM 136 mEq/L (136-145)
[2024-03-12 11:19] LABS: CARBON DIOXIDE 29 mEq/L (21-32)
[2024-03-12 11:20] LABS: CREATININE 1.6 mg/dL (0.6-1.3)
[2024-03-12 11:21] LABS: PROTHROMBIN TIME 11.4 sec (9.6-11.0); UREA NITROGEN BLOOD 17 mg/dL (9-23)
[2024-03-12 11:22] LABS: ALANINE AMINOTRANSFERASE 23 IU/L (10-49); ALBUMIN 3.4 g/dL (3.2-4.8); ASPARTATE AMINOTRANSFERASE 15 IU/L (<34)
[2024-03-12 11:23] LABS: BETA HYDROXYBUTYRATE 0.2 mMol/L (0.0-0.3); BILIRUBIN DIRECT 0.2 mg/dL (<=3.0); BILIRUBIN TOTAL 0.4 mg/dL (0.1-1.0); PROTEIN TOTAL 5.9 g/dL (6.0-8.3)
[2024-03-12 11:45] LABS: BG BASE EXCESS 1.5 mmol/L (-2.0-3.0); BG CARBOXYHEMOGLOBIN 3.6 % (0.5-1.5); BG DEOXYHEMOGLOBIN 4.7 % (0.0-5.0); BG FRACTION INSPIRED OXYGEN 21; BG HCO3 ACT 27.1 mmol/L (21.0-28.0); BG METHEMOGLOBIN 0.3 % (0.5-1.5); BG OXYGEN SATURATION 95.1 % (94.0-98.0); BG OXYHEMOGLOBIN 91.4 % (94.0-98.0); BG PCO2 46.4 mmHg (35.0-48.0); BG PH 7.384 (7.350-7.450); BG PO2 74.7 mmHg (83.0-108.0); BG SAMPLE SITE RIGHT BRACHIAL; BG TOTAL HEMOGLOBIN 13.2 g/dL (13.5-17.5); BG VENT MODE ROOM AIR
[2024-03-12 11:50] LABS: CLARITY URINE CLEAR (CLEAR); COLOR URINE YELLOW (YELLOW); GLUCOSE URINE 3+ (NEGATIVE); KETONES URINE NEGATIVE (NEGATIVE); LEUKOCYTE ESTERASE URINE NEGATIVE (NEGATIVE); NITRITE URINE NEGATIVE (NEGATIVE); OCCULT BLOOD URINE NEGATIVE (NEGATIVE); PH URINE 6.5 (4.5-8.0); PROTEIN URINE 1+ (NEGATIVE); SPECIFIC GRAVITY URINE 1.027 (1.005-1.030)
[2024-03-12 11:52] LABS: GLUCOSE 420 mg/dL (70-105)
[2024-03-12 12:03] LABS: BACTERIA URINE NONE SEEN; RBC URINE 0-2 /hpf (0-2); SQUAMOUS EPITHELIAL CELL URINE 1+ /lpf (RARE/1+); WBC URINE 0-2 /hpf (0-2); YEAST URINE NONE SEEN
[2024-03-12 12:30] VITALS: BP 147/93; PULSE 68; RESP 12; O2SAT 99
== END 2024-03-12 12:55 | disposition home or self-care (01) ==
LOC: ER 11:11
DX: I10 Essential (primary) hypertension (principal); E11.65 Type 2 diabetes mellitus with hyperglycemia; E78.00 Pure hypercholesterolemia, unspecified; Z79.899 Other long term (current) drug therapy
CPT/HCPCS: 80076; 80048; 81003; 82010; 82962; 83690; 85025; 85610; 36415; 82805; 82375; 96360; 99283; 36600; J7030; Z7610